=== PATIENT | female | born 1975 | race Caucasian/White ===

== ENCOUNTER 2019-07-26 11:31 | Outpatient (CLI) | payer OTHER, SELFPAY ==
--- NOTE | ~2019-07-26 | XR_ITS ---
EXAMINATION: XR ankle LT min 3V DATE: 07/26/2019 11:47 INDICATION: Left ankle pain TECHNIQUE: Anteroposterior, lateral, mortise, and additional oblique view of the ankle were obtained. COMPARISON: None. FINDINGS: There is no fracture, dislocation, or subluxation. The bones, soft tissues, and joint space s are normal. IMPRESSION: 1. No acute osseous abnormality. Reviewed, dictated and finalized at location B.
== END 2019-07-26 11:32 | disposition home or self-care (01) ==
LOC: CHSIMG 11:35
PROVIDERS: PCP Internal Medicine; Visit Provider Internal Medicine
DX: S99.912A Unspecified injury of left ankle, initial encounter (principal)
CPT/HCPCS: 73610

== ENCOUNTER 2019-08-20 08:48 | Outpatient (CLI) | payer OTHER, SELFPAY ==
--- NOTE | ~2019-08-20 | MR_ITS ---
EXAMINATION: MR ankle LT wo con DATE: 08/20/2019 10:01 INDICATION: Left ankle pain and swelling post injury 5-6 weeks prior TECHNIQUE: Magnetic resonance imaging (MRI) of the left ankle was performed without intravenous contr ast. Sequences included sagittal, coronal, and axial proton-density weighted fast spin echo without a nd with fat saturation. COMPARISON: None. FINDINGS: Medial ankle ligaments: Deep and superficial deltoid ligaments as well as the spring ligament are normal. Lateral ankle ligaments: The anterior and posterior inferior tibiofibular ligaments are normal. The anterior talofibular, calc aneofibular and posterior talofibular ligaments are normal. Tendons: Achilles tendon is normal. The peroneus longus and brevis tendons are normal. The tibialis anterior a nd extensor hallucis longus and extensor digitorum longus tendons are normal. The tibialis posterior, flexor digitorum longus and flexor hallucis longus tendons are normal. Plantar fascia: Plantar aponeurosis is normal. Bones/other: Bone alignment is normal. Normal marrow signal throughout with no fracture, reactive edema or patholo gic marrow replacing process. Lisfranc ligament complex is normal. There is soft tissue edema underly ing the marker indicating the region of concern and superficial to the intact appearing dorsal talona vicular and bifurcate ligaments and along the intact appearing roots of the inferior extensor retinac ulum. The sinus Tarsi and tarsal tunnel are unremarkable. Fluid: Physiologic amount of fluid in the joint spaces. IMPRESSION: 1. Mild soft tissue edema adjacent to the intact appearing dorsal talonavicular ligament, bifurcate l igament and roots of the inferior extensor retinaculum which could represent be either contusion or s equela of low-grade sprain. Reviewed, dictated and finalized at location A. IMPRESSION: 1. Mild soft tissue edema adjacent to the intact appearing dorsal talonavicular ligament, bifurcate ligament and roots of the inferior extensor retinaculum wh ich could represent be either contusion or sequela of low-grade sprain.
== END 2019-08-20 08:49 | disposition home or self-care (01) ==
LOC: CHSIMG 08:49
PROVIDERS: PCP Internal Medicine; Visit Provider Internal Medicine
DX: M25.572 Pain in left ankle and joints of left foot (principal)
CPT/HCPCS: 73721

== ENCOUNTER 2020-03-15 07:00 | Outpatient (CLI) | payer OTHER, SELFPAY ==
--- NOTE | ~2020-03-15 | XR_ITS ---
EXAMINATION: XR knee LT 3V DATE: 03/15/2020 07:21 INDICATION: Left knee pain. Injury. TECHNIQUE: 3 views of left knee were obtained. COMPARISON: None. FINDINGS: Bone alignment is normal. No fracture. There is mild osteoarthritis of lateral and patellof emoral compartments characterized by tiny marginal osteophytes. No knee joint effusion. IMPRESSION: 1. Mild left knee osteoarthritis. Reviewed, dictated and finalized at location B. [employer]
== END 2020-03-15 07:01 ==
LOC: CHSIMG 07:02
PROVIDERS: PCP Internal Medicine; Visit Provider Internal Medicine
DX: M25.562 Pain in left knee (principal)
CPT/HCPCS: 73562

== ENCOUNTER 2020-03-17 09:11 | Outpatient (CLI) | payer OTHER, SELFPAY ==
--- NOTE | ~2020-03-17 | MR_ITS ---
EXAMINATION: MR knee LT wo con DATE: 03/17/2020 11:17 INDICATION: Left knee pain. TECHNIQUE: Magnetic resonance imaging (MRI) of the left knee was performed without intravenous contra st. Sequences included axial PD-weighted FS FSE, coronal PD-weighted FSE and PD-weighted FS FSE, sagi ttal PD-weighted FSE, and sagittal T2-weighted FS FSE. COMPARISON: Left knee radiographs 03/15/2020 FINDINGS: Medial compartment: Medial meniscus is normal. There is cartilage surface regularity of tibial condyle. There is shallow partial-thickness cartilage loss of femoral condyle involving the central articular surface. Lateral compartment: Lateral meniscus is normal. Lateral compartment cartilage is normal. Patellofemoral compartment: There is shallow partial-thickness cartilage loss of patellar medial facet, median ridge, and lateral facet. Trochlear cartilage is normal. Ligaments and tendons: Anterior cruciate ligament is normal. There is a sprain of posterior cruciate ligament characterized by thickening and increased signal intensity. Medial collateral ligament is normal. There are changes of prior sprain of fibular collateral ligament characterized with thickening and increased signal in tensity proximally. The patellar tendon is normal. Fluid: There is a small knee joint effusion. There is a small ruptured Bates's cyst. IMPRESSION: 1. Mild chondrosis of medial and patellofemoral compartments. 2. Posterior cruciate ligament sprain. 3. Small knee joint effusion. 4. Small ruptured Bates's cyst. Reviewed, dictated and finalized at location A. [facility] SCHEDULER
== END 2020-03-17 09:12 | disposition home or self-care (01) ==
LOC: CHSIMG 09:13
PROVIDERS: PCP Internal Medicine; Visit Provider Internal Medicine
DX: M25.562 Pain in left knee (principal)
CPT/HCPCS: 73721

== ENCOUNTER 2022-10-04 07:00 | Outpatient (CLI) | payer BC, SELFPAY ==
--- NOTE | ~2022-10-04 | MR_ITS ---
MRI of the right elbow CLINICAL HISTORY: Pain TECHNIQUE: Proton density and proton density fat-sat imaging was performed in the axial, coronal, and sagittal planes. FINDINGS: Ulnar collateral ligament is intact. There is probable high-grade, likely complete tear of the radial collateral ligament from its proximal origin at the distal humerus. Lateral ulnar collater al ligament is grossly intact. The common flexor and common extensor tendon origins appear to be inta ct. Bone marrow signals are unremarkable. No osseous or articular abnormality of the elbow identified oth erwise. No joint effusion. Biceps, brachialis, and triceps tendons are intact. Visualized muscle signals are unremarkable. IMPRESSION: Probable high-grade, likely complete, tear of the proximal origin of the radial collateral ligament. Reviewed, dictated and finalized at location M.
== END 2022-10-04 07:01 | disposition home or self-care (01) ==
PROVIDERS: PCP Internal Medicine; Visit Provider Internal Medicine
DX: M25.521 Pain in right elbow (principal)
CPT/HCPCS: 73221